=== PATIENT | female | born 1995 | race Caucasian/White ===

== ENCOUNTER 2017-04-17 23:25 | Emergency (ER) | payer MEDICAID ==
[~2017-04-17] VITALS: Ht 170.2 cm; Wt 54.9 kg
[2017-04-18 00:08] LABS: HCG UR LOT HCG7060132
[2017-04-18 00:16] LABS: HCG UR OBC PASS
[2017-04-18 00:54] LABS: HEMOGLOBIN 13.9 g/dL (11.7-16.4); WHITE BLOOD COUNT 10.1 x10^3/uL (3.4-10)
[2017-04-18 01:02] LABS: ASPARTATE AMINO TRANSFERASE 17 U/L (15-37); BLOOD UREA NITROGEN 16 mg/dL (7-18)
[2017-04-18 02:09] VITALS: BP 111/70
== END 2017-04-18 02:17 | disposition home or self-care (01) ==
LOC: EDBD 23:25 → ED 04-18 00:59
DX: N83.201 Unspecified ovarian cyst, right side (principal); F41.9 Anxiety disorder, unspecified
CPT/HCPCS: 36415; 76830; 80053; 81003; 81025; 83690; 85025; 99285